=== PATIENT | female | born 1960 | race Caucasian/White ===

== ENCOUNTER → 2022-12-20 | Day surgery (SDC) | payer BC ==
[~2022-12-20] MED LIST: BUPIVACAINE HCL 0.5% INJ 30 ML VIAL INJ ONE; BUSPIRONE HCL30 MG PO; CEFAZOLIN SODIUM 2 GM ONE; DEXAMETHASONE SOD PHOS INJ 4 MG/ML SDV ONE; FENTANYL CITRATE/PF 100MCG/2 ML INJ ONE; GABAPENTIN300 MG PO; HYDROCODONE/APAP 10MG-325MG TAB ONE; HYDROMORPHONE 1MG/1ML INJ ONE; HYDROXYZIN10 MG/5 ML PO; KETOROLAC TROMETHAMINE 30 MG/ML VIAL ONE; LACTATED RINGER'S 1,000 ML ONE; LEXAPRO20 MG PO; LIDOCAINE 2%/ EPINEPHRINE 20ML MDV ONE; LIDOCAINE HCL 2% LOCAL INJ 5 ML SDV VIAL INJ ONE; METOPROLOL SUCC25 MG PO; MIDAZOLAM HCL 2 MG/2 ML VIAL ONE; OLANZAPINE5 MG PO; ONDANSETRON HCL INJ 2MG/ML 2ML 2 MG/ML VIAL ONE; PROPOFOL IV EMULSION 10 MG/ML 20 ML VIAL ONE; SEVOFLURANE INHAL SOLN 250 ML PEN BTL ONE; TRAZODONE HCL50 MG PO; ZETIA10 MG PO
[2022-12-20] MEDS: MEPERIDINE HCL INJ 25 MG/ML VIAL ONE ×2 (13:25→13:30)
[2022-12-20 14:10] VITALS: BP 127/59; PULSE 74; RESP 16; O2SAT 96
== END | disposition home or self-care (01) ==
LOC: OR 05:53
PROVIDERS: ATTEND Orthopaedic Surgery
DX: S83.232A Complex tear of medial meniscus, current injury, left knee, initial encounter (principal); S83.282A Other tear of lateral meniscus, current injury, left knee, initial encounter; M84.462A Pathological fracture, left tibia, initial encounter for fracture; M65.862 Other synovitis and tenosynovitis, left lower leg; M94.262 Chondromalacia, left knee; M23.42 Loose body in knee, left knee; I10 Essential (primary) hypertension; E78.5 Hyperlipidemia, unspecified; F17.290 Nicotine dependence, other tobacco product, uncomplicated; F41.9 Anxiety disorder, unspecified; F32.A Depression, unspecified; Z01.810 Encounter for preprocedural cardiovascular examination; Z79.899 Other long term (current) drug therapy; X58.XXXA Exposure to other specified factors, initial encounter
CPT/HCPCS: 27599; 29882; 93005; C1713 ×4; J0690; J1100; J1170; J1885; J2001 ×2; J2175; J2250; J2405; J2704; J3010; J7121; 76000